=== PATIENT | male | born 1990 | race Caucasian/White ===

== ENCOUNTER 2022-07-04 15:07 | Emergency (ER) | payer SELFPAY ==
[~2022-07-04] VITALS: Ht 170.2 cm; Wt 62.0 kg
[2022-07-04 15:12] VITALS: BP 122/72
== END 2022-07-04 18:45 | disposition home or self-care (01) ==
LOC: ER 15:07
DX: R06.02 Shortness of breath (principal); R00.2 Palpitations; F41.9 Anxiety disorder, unspecified
CPT/HCPCS: 99281